=== PATIENT | male | born 1965 | race African-American/Black ===

== ENCOUNTER 2018-09-11 00:48 | Emergency (ER) | payer MEDICAID, MEDICARE ==
[~2018-09-11] VITALS: Ht 170.2 cm; Wt 68.1 kg
[2018-09-11] MEDS ORDERED: MORPHINE SULFATE 4 MG/ML CPJ (NOT FOR IM USE) IV STA (01:23)
[2018-09-11] MEDS ORDERED: SODIUM CHLORIDE 0.9% 1,000 ML IV ONE (01:23)
[2018-09-11] MEDS ORDERED: FAMOTIDINE 20MG/2ML VIAL IV STA (01:23)
[2018-09-11] MEDS ORDERED: ONDANSETRON HCL 4MG/2ML INJ IV STA (01:23)
[2018-09-11 01:57] LABS: BASOPHILS % 0.7 % (0.0-2.0); EOSINOPHILS % 1.6 % (0.0-5.0); HEMATOCRIT. 36.6 % (42.0-52.0); LYMPHOCYTES % 27.3 % (20.0-50.0); MEAN CORPUSCULAR HEMOGLOBIN 28.6 pg (28.0-32.0); MEAN CORPUSCULAR VOLUME 87.5 fL (80.0-94.0); MEAN PLATELET VOLUME 7.8 fl (7.4-10.4); MONOCYTES % 7.6 % (2.0-8.0); NEUTROPHILS % 62.8 % (40.0-76.0); PLATELET 324 x1000/uL (130-400); RED BLOOD CELL COUNT 4.18 mill/uL (4.7-6.1)
[2018-09-11 02:01] LABS: CHLORIDE 111 mEq/L (98-107)
[2018-09-11 02:02] LABS: PROTHROMBIN TIME 10.1 sec (9.6-11.0)
[2018-09-11 02:05] LABS: ETHANOL BLOOD 208 mg/dL
[2018-09-11 02:07] LABS: CLARITY URINE CLEAR (CLEAR); COLOR URINE YELLOW (YELLOW); KETONES URINE NEGATIVE (NEGATIVE); LEUKOCYTE ESTERASE URINE NEGATIVE (NEGATIVE); NITRITE URINE NEGATIVE (NEGATIVE); OCCULT BLOOD URINE NEGATIVE (NEGATIVE); PROTEIN URINE NEGATIVE (NEGATIVE); SPECIFIC GRAVITY URINE 1.004 (1.005-1.030); UROBILINOGEN URINE 0.2 E.U./dL (0.2-1.0)
[2018-09-11 02:15] LABS: *AMPHETAMINES SCREEN URINE NEGATIVE (NEGATIVE); *BARBITURATES SCREEN URINE NEGATIVE (NEGATIVE); *BENZODIAZEPINES SCREEN URINE NEGATIVE (NEGATIVE); *COCAINE SCREEN URINE PRESUMTIVE POSITIVE (NEGATIVE); METHADONE URINE SCREEN NEGATIVE (NEGATIVE); OPIATES URINE SCREEN NEGATIVE (NEGATIVE); PHENCYCLIDINE URINE SCREEN NEGATIVE (NEGATIVE)
[2018-09-11 02:16] LABS: CANNABINOID URINE SCREEN PRESUMTIVE POSITIVE (NEGATIVE)
[2018-09-11 03:05] VITALS: BP 119/66
[2018-09-11] MEDS ORDERED: IOHEXOL-300 100 ML BOTTLE ONE (03:45)
== END 2018-09-11 04:13 | disposition left against medical advice (07) ==
LOC: ER 00:48 → CANBEDREQ 05:26
DX: R10.13 Epigastric pain (principal); I10 Essential (primary) hypertension; F12.10 Cannabis abuse, uncomplicated
CPT/HCPCS: 36415; 71045; 74177; 80053; 80305; 80320; 81003; 83605; 83690; 85025; 85610; 86850; 86900; 86901; 93005; 96374; 96375; 99284; J2270; J2405; J3490; J7030; Q9967; G0480